=== PATIENT | female | born 1940 | race Caucasian/White ===

== ENCOUNTER 2019-06-14 07:59 | Day surgery (SDC) | payer OTHER, MEDICARE ==
[2019-06-12 13:09] VITALS: BMI 21.4
[2019-06-14] MEDS ORDERED: PROPOFOL 20 ML ONE ×2 (08:07)
[2019-06-14] MEDS ORDERED: LIDOCAINE HCL/PF 2% SDV 5ML VIAL ONE (08:07)
[2019-06-14 10:25] VITALS: TEMP 97.8
[2019-06-14 10:26] VITALS: BP 150/78; PULSE 74
--- NOTE | 2019-06-15 16:04 | PATH ---
Surgical Pathology Report Patient Name: [facility]. Rec. #: [id number] /Age/Gender: 1940 (Age: 79) / F Account: [id number] Location: [facility] Taken: 06/14/2019 Received: 06/14/2019 Reported: 06/15/2019 Physicians: Bernardo Naranjo M.D. Specimen(s) Received A: SECOND PORTION DUODENUM B: ANTRUM C: POLYP ASCENDING DOLON D: POLYP HEPATIC FLEXURE Clinical History GERD, weight loss, screening Postoperative diagnosis: Small hiatal hernia, gastritis, diverticulosis, colon polyp Final Diagnosis A. DUODENUM, SECOND PORTION, BIOPSY: DUODENAL MUCOSA WITHOUT SIGNIFICANT PATHOLOGIC FINDINGS. B. GASTRIC ANTRUM, BIOPSY: GASTRIC ANTRAL MUCOSA WITH MILD CHRONIC GASTRITIS. IMMUNOHISTOCHEMICAL STAIN FOR H. PYLORI IS NEGATIVE. C. ASCENDING COLON, POLYP, BIOPSY: HYPERPLASTIC POLYP. D. COLON, HEPATIC FLEXURE, POLYP, BIOPSY: HYPERPLASTIC POLYP. Positive and negative controls (internal if applicable) show appropriate results. Electronically Signed Suzette Caledron M.D. Gross Description A. Received in formalin, labeled "biopsy second portion duodenum" are 2 daley, irregular portions of soft tissue measuring 0.4 and 0.5 cm. in greatest dimension. The specimens are submitted in toto in one cassette. B. Received in formalin, labeled "biopsy gastric antrum" are 2 daley, irregular portions of soft tissue measuring 0.3 and 0.7 cm. in greatest dimension. The specimens are submitted in toto in one cassette. C. Received in formalin, labeled "biopsy polyp ascending colon" are 2 daley, irregular portions of soft tissue measuring 0.4 and 0.5 cm. in greatest dimension. The specimens are submitted in toto in one cassette. D. Received in formalin, labeled "biopsy polyp hepatic flexure" are 3 daley, irregular portions of soft tissue ranging from 0.2-0.4 cm. in greatest dimension. The specimens are submitted in toto in one cassette. 06/14/201906/14/2019
== END 2019-06-14 10:45 | disposition home or self-care (01) ==
LOC: FASU-ENDO 07:59
PROVIDERS: ATTEND Internal Medicine Gastroenterology
PROC: 0DBL8ZX Excision of Transverse Colon, Via Natural or Artificial Opening Endoscopic, Diagnostic (ICD-10-PCS; 2019-06-14)
PROC: 0DB98ZX Excision of Duodenum, Via Natural or Artificial Opening Endoscopic, Diagnostic (ICD-10-PCS; 2019-06-14)
PROC: 0DB68ZX Excision of Stomach, Via Natural or Artificial Opening Endoscopic, Diagnostic (ICD-10-PCS; 2019-06-14)
PROC: 0DBK8ZX Excision of Ascending Colon, Via Natural or Artificial Opening Endoscopic, Diagnostic (ICD-10-PCS; principal; 2019-06-14 09:03)
DX: R63.4 Abnormal weight loss (principal); D12.2 Benign neoplasm of ascending colon; D12.3 Benign neoplasm of transverse colon; K57.30 Diverticulosis of large intestine without perforation or abscess without bleeding; K58.9 Irritable bowel syndrome, unspecified; K63.89 Other specified diseases of intestine; K29.50 Unspecified chronic gastritis without bleeding; K25.9 Gastric ulcer, unspecified as acute or chronic, without hemorrhage or perforation; K44.9 Diaphragmatic hernia without obstruction or gangrene

== ENCOUNTER 2020-07-29 08:27 | Inpatient (IN) | payer OTHER, MEDICARE ==
[2020-07-29] MEDS ORDERED: morphine CARPU-JECT 2 MG/1 ML DISP.SYRIN IVPUSH ONE (08:37)
[2020-07-29] MEDS ORDERED: morphine SULFATE 4 MG/ML VIAL ONE ×2 (08:54→10:41)
[2020-07-29 09:15] LABS: BASO % 1.2 % (0-2.0); EOS % 5.5 % (0-4.5); HEMOGLOBIN 14.3 GM/dl (10.7-15.3); LYMPH % 13.4 % (8-40); MCH 28.9 pg (25.7-33.7); MCHC 32.6 g/dl (32.0-36.0); MEAN CELL VOLUME 88.5 fl (80-96); MEAN PLT VOLUME 8.3 fl (7.5-11.1); MONO % 6.3 % (3.8-10.2); NEUT % 73.6 % (42.8-82.8); PLATELET COUNT 280 K/MM3 (134-434); RBC 4.97 M/mm3 (3.60-5.2); RDW 13.3 % (11.6-15.6); WHITE BLOOD COUNT 7.7 K/mm3 (4.0-10.8)
[2020-07-29 09:29] LABS: ALBUMIN 3.8 g/dl (3.4-5.0); BILIRUBIN,TOTAL 1.3 mg/dl (0.2-1); CALCIUM 8.9 mg/dl (8.5-10); CREATININE 1.1 mg/dl (0.55-1.3); TOT PROT 6.2 g/dl (6.4-8.2)
[2020-07-29] MEDS ORDERED: morphine CARPU-JECT 4 MG/1 ML DISP.SYRIN IVPUSH ONE (10:22)
[2020-07-29 11:26] LABS: LIPASE 823 U/L (73-393)
[2020-07-29] MEDS ORDERED: SODIUM CHLORIDE 500 ML IV STA (13:56)
[2020-07-29] MEDS ORDERED: LACTATED RINGERS SOLUTION 1,000 ML IV SCH ×2 (14:00→17:25)
[2020-07-29] MEDS ORDERED: HYDROmorphone HCL CARPU-JECT 2 MG/1 ML DISP.SYRIN IVPUSH ONE (16:13)
[2020-07-29] MEDS ORDERED: HYDROmorphone HCL/PF 1 MG/ML VIAL ONE (16:17)
[2020-07-29 17:04] LABS: BASO % 0.2 % (0-2.0); EOS % 0.4 % (0-4.5); HEMATOCRIT 44.9 % (32.4-45.2); HEMOGLOBIN 14.9 GM/dl (10.7-15.3); LYMPH % 4.1 % (8-40); MCH 29.5 pg (25.7-33.7); MCHC 33.2 g/dl (32.0-36.0); MEAN CELL VOLUME 88.8 fl (80-96); MEAN PLT VOLUME 8.1 fl (7.5-11.1); MONO % 2.7 % (3.8-10.2); NEUT % 92.6 % (42.8-82.8); PLATELET COUNT 319 K/MM3 (134-434); RBC 5.06 M/mm3 (3.60-5.2); RDW 13.3 % (11.6-15.6); WHITE BLOOD COUNT 14.7 K/mm3 (4.0-10.8)
[2020-07-29 17:15] LABS: ALBUMIN 3.6 g/dl (3.4-5.0); BILIRUBIN,DIRECT 0.3 mg/dL (0.0-0.2); BILIRUBIN,TOTAL 1.7 mg/dl (0.2-1); CALCIUM 8.4 mg/dl (8.5-10); POTASSIUM 4.7 mmol/L (3.5-5.1)
[2020-07-29] MEDS ORDERED: MEROPENEM 500 MG in DEXTROSE 5%-WATER 100 ML IVPB SCH (18:15)
[2020-07-29 18:21] VITALS: BMI 23.1
[2020-07-30 07:51] LABS: BASO % 0.4 % (0-2.0); EOS % 0.4 % (0-4.5); HEMATOCRIT 43.8 % (32.4-45.2); HEMOGLOBIN 14.4 GM/dl (10.7-15.3); LYMPH % 5.9 % (8-40); MCH 29.2 pg (25.7-33.7); MCHC 32.8 g/dl (32.0-36.0); MEAN CELL VOLUME 88.9 fl (80-96); MEAN PLT VOLUME 8.5 fl (7.5-11.1); NEUT % 89.3 % (42.8-82.8); PLATELET COUNT 313 K/MM3 (134-434); RBC 4.93 M/mm3 (3.60-5.2); RDW 13.4 % (11.6-15.6); WHITE BLOOD COUNT 13.6 K/mm3 (4.0-10.8)
[2020-07-30 08:15] LABS: BILIRUBIN,DIRECT 0.2 mg/dL (0.0-0.2); BILIRUBIN,TOTAL 1.7 mg/dl (0.2-1); CALCIUM 8.4 mg/dl (8.5-10); CREATININE 1.1 mg/dl (0.55-1.3); MAGNESIUM 1.8 mg/dL (1.8-2.4); POTASSIUM 4.4 mmol/L (3.5-5.1); TOT PROT 5.1 g/dl (6.4-8.2)
[2020-07-30 08:24] LABS: INR 1.04 (0.82-1.09); PROTHROMBIN TIME (PATIENT) 11.6 SEC (10.2-13.0)
[2020-07-30] MEDS ORDERED: PANTOPRAZOLE SODIUM 40 MG VIAL IVPUSH SCH (10:00)
[2020-07-30] MEDS ORDERED: ONDANSETRON 4 MG/2 ML VIAL IVPUSH PRN ×2 (12:47→21:25)
[2020-07-30] MEDS ORDERED: MEROPENEM 500 MG VIAL (RESTRICTED TO ID) IVPB ONE (16:55)
[2020-07-30] MEDS ORDERED: DEXTROSE 5%-WATER 100 ML IVPB ONE (16:56)
[2020-07-30] MEDS ORDERED: LACTATED RINGERS SOLUTION 1,000 ML IV SCH ×2 (17:22→21:15)
[2020-07-30] MEDS ORDERED: MEROPENEM 1 GM in DEXTROSE 5%-WATER 100 ML IVPB SCH (18:00)
[2020-07-30] MEDS ORDERED: MEROPENEM 500 MG in DEXTROSE 5%-WATER 100 ML IVPB SCH (18:15)
[2020-07-30] MEDS ORDERED: morphine SULFATE 4 MG/ML VIAL IVPB PRN (19:41)
[2020-07-30] MEDS ORDERED: ACETAMINOPHEN 325 MG TABLET (FP) PO PRN (19:41)
[2020-07-30] MEDS ORDERED: BUPIVACAINE HCL/PF 0.5% (5 MG/ML) 30 ML VIAL IJ ONE (20:38)
[2020-07-30] MEDS ORDERED: NEOSTIGMINE METHYLSULFATE 0.5 MG/ML - 10 ML MDV ONE ×2 (20:41→20:52)
[2020-07-30] MEDS ORDERED: GLYCOPYRROLATE 0.2 MG/1 ML VIAL ONE (20:41)
[2020-07-30] MEDS ORDERED: ACETAMINOPHEN 1000 MG/100 ML VIAL (NON FORMULARY) IVPB ONE (21:19)
[2020-07-30] MEDS: D5-1/2NS+20 MEQ KCL - 20 MEQ/1,000 ML INFUS.BAG IV SCH (22:30)
[2020-07-31] MEDS ORDERED: MEROPENEM 1 GM in DEXTROSE 5%-WATER 100 ML IVPB SCH (06:00)
[2020-07-31] MEDS ORDERED: DEXTROSE 5%-WATER 100 ML IVPB ONE ×2 (06:29→18:16)
[2020-07-31] MEDS ORDERED: MEROPENEM 1 GM VIAL (RESTRICTED TO ID) IVPB ONE ×2 (06:29→18:16)
[2020-07-31] MEDS: MEROPENEM 1 GM in DEXTROSE 5%-WATER 100 ML IVPB SCH ×2 (06:41→18:18)
[2020-07-31 08:37] LABS: HEMATOCRIT 38.2 % (32.4-45.2); HEMOGLOBIN 12.7 GM/dL (10.7-15.3); MCH 29.5 pg (25.7-33.7); MCHC 33.3 g/dl (32.0-36.0); MEAN CELL VOLUME 88.4 fl (80-96); MEAN PLT VOLUME 8.5 fl (7.5-11.1); PLATELET COUNT 276 K/MM3 (134-434); RBC 4.33 M/mm3 (3.60-5.2); RDW 14.2 % (11.6-15.6); WHITE BLOOD COUNT 12.3 K/mm3 (4.0-10.0)
[2020-07-31] MEDS: D5-1/2NS+20 MEQ KCL - 20 MEQ/1,000 ML INFUS.BAG IV SCH (09:03)
[2020-07-31] MEDS: PANTOPRAZOLE SODIUM 40 MG VIAL IVPUSH SCH (09:04)
[2020-07-31 09:24] LABS: BLOOD UREA NITROGEN 34.2 mg/dL (7-18)
[2020-07-31 09:27] LABS: CREATININE 1.3 mg/dL (0.55-1.3); PHOSPHOROUS 4.4 mg/dL (2.5-4.9)
[2020-07-31] MEDS ORDERED: ENOXAPARIN NA (PORCINE) 40 MG/0.4 ML DISP.SYRIN SQ SCH (10:00)
[2020-07-31] MEDS: DEXTROSE 5%-LACTATED RINGERS 1,000 ML IV SCH (11:44)
[2020-07-31] MEDS: HEPARIN NA (PORCINE) 5,000 UNITS/ML 1ML VIAL SQ SCH ×2 (15:26→21:32)
[2020-08-01] MEDS: DEXTROSE 5%-LACTATED RINGERS 1,000 ML IV SCH (01:12)
[2020-08-01] MEDS ORDERED: MEROPENEM 1 GM VIAL (RESTRICTED TO ID) IVPB ONE ×2 (05:47→17:15)
[2020-08-01] MEDS ORDERED: DEXTROSE 5%-WATER 100 ML IVPB ONE ×2 (05:47→17:15)
[2020-08-01] MEDS: MEROPENEM 1 GM in DEXTROSE 5%-WATER 100 ML IVPB SCH ×2 (06:12→17:27)
[2020-08-01] MEDS: HEPARIN NA (PORCINE) 5,000 UNITS/ML 1ML VIAL SQ SCH (06:12)
[2020-08-01 09:24] LABS: BASO % 0.3 % (0-2.0); EOS % 4.2 % (0-4.5); HEMATOCRIT 29.2 % (32.4-45.2); HEMOGLOBIN 9.7 GM/dL (10.7-15.3); LYMPH % 9.1 % (8-40); MCH 30.2 pg (25.7-33.7); MCHC 33.2 g/dl (32.0-36.0); MEAN PLT VOLUME 8.6 fl (7.5-11.1); MONO % 6.7 % (3.8-10.2); NEUT % 79.7 % (42.8-82.8); PLATELET COUNT 182 K/MM3 (134-434); RBC 3.21 M/mm3 (3.60-5.2); RDW 13.9 % (11.6-15.6); WHITE BLOOD COUNT 6.3 K/mm3 (4.0-10.0)
[2020-08-01 09:30] LABS: CHLORIDE 107 mmol/L (98-107); POTASSIUM 4.1 mmol/L (3.5-5.1); SODIUM 142 mmol/L (136-145)
[2020-08-01 09:36] LABS: ANION GAP 5 MMOL/L (8-16); BLOOD UREA NITROGEN 21.7 mg/dL (7-18); CALCIUM 7.8 mg/dL (8.5-10.1); CO2 30 mmol/L (21-32); MAGNESIUM 1.9 mg/dL (1.8-2.4)
[2020-08-01 09:38] LABS: SGOT/AST 13 U/L (15-37); SGPT/ALT 14 U/L (13-61)
[2020-08-01 09:39] LABS: BILIRUBIN,TOTAL 1.1 mg/dL (0.2-1); CREATININE 0.9 mg/dL (0.55-1.3); PHOSPHOROUS 1.7 mg/dL (2.5-4.9)
[2020-08-01 09:40] LABS: TOT PROT 3.9 g/dl (6.4-8.2)
[2020-08-01 10:05] LABS: ALK PHOS 47 U/L (45-117); GLUCOSE,RANDOM 502 mg/dL (74-106)
[2020-08-01] MEDS: PANTOPRAZOLE SODIUM 40 MG VIAL IVPUSH SCH (10:12)
[2020-08-01] MEDS ORDERED: SODIUM PHOSPHATE - 30 MM in SODIUM CHLORIDE 500 ML IVPB ONE (10:30)
[2020-08-01] MEDS ORDERED: LACTATED RINGERS SOLUTION 1,000 ML/1,000 ML INFUS.BAG IV SCH (10:45)
[2020-08-02] MEDS ORDERED: MEROPENEM 1 GM VIAL (RESTRICTED TO ID) IVPB ONE ×2 (05:12→17:45)
[2020-08-02] MEDS ORDERED: DEXTROSE 5%-WATER 100 ML IVPB ONE ×2 (05:13→17:45)
[2020-08-02] MEDS: MEROPENEM 1 GM in DEXTROSE 5%-WATER 100 ML IVPB SCH ×2 (05:14→17:51)
[2020-08-02 09:20] LABS: POTASSIUM 3.8 mmol/L (3.5-5.1)
[2020-08-02 09:21] LABS: BASO % 0.4 % (0-2.0); EOS % 9.1 % (0-4.5); HEMATOCRIT 30.4 % (32.4-45.2); LYMPH % 11.9 % (8-40); MCH 29.4 pg (25.7-33.7); MCHC 32.8 g/dl (32.0-36.0); MEAN CELL VOLUME 89.5 fl (80-96); MEAN PLT VOLUME 8.8 fl (7.5-11.1); MONO % 5.8 % (3.8-10.2); NEUT % 72.8 % (42.8-82.8); PLATELET COUNT 181 K/MM3 (134-434); RDW 13.6 % (11.6-15.6); WHITE BLOOD COUNT 5.6 K/mm3 (4.0-10.0)
[2020-08-02 09:23] LABS: CALCIUM 7.8 mg/dL (8.5-10.1)
[2020-08-02 09:24] LABS: BLOOD UREA NITROGEN 16.6 mg/dL (7-18)
[2020-08-02 09:25] LABS: CREATININE 0.6 mg/dL (0.55-1.3)
[2020-08-02 09:27] LABS: PHOSPHOROUS 2.5 mg/dL (2.5-4.9)
[2020-08-02] MEDS: PANTOPRAZOLE SODIUM 40 MG VIAL IVPUSH SCH (09:46)
[2020-08-02] MEDS ORDERED: TELMISARTAN HCTZ PO SCH (12:30)
[2020-08-02] MEDS: LOSARTAN POTASSIUM 50 MG TABLET PO SCH (13:38)
[2020-08-02] MEDS: HYDROCHLOROTHIAZIDE 25 MG TABLET (FP) PO SCH (13:39)
[2020-08-02] MEDS: ATORVASTATIN CA 20 MG TABLET (FP) PO SCH (22:47)
[2020-08-03] MEDS ORDERED: MEROPENEM 1 GM VIAL (RESTRICTED TO ID) IVPB ONE ×2 (05:48→18:08)
[2020-08-03] MEDS ORDERED: DEXTROSE 5%-WATER 100 ML IVPB ONE ×2 (05:48→18:08)
[2020-08-03] MEDS: MEROPENEM 1 GM in DEXTROSE 5%-WATER 100 ML IVPB SCH ×2 (05:50→18:16)
[2020-08-03 10:42] LABS: BASO % 0.4 % (0-2.0); EOS % 9.9 % (0-4.5); HEMATOCRIT 32.5 % (32.4-45.2); HEMOGLOBIN 10.9 GM/dL (10.7-15.3); LYMPH % 11.1 % (8-40); MCH 29.6 pg (25.7-33.7); MCHC 33.6 g/dl (32.0-36.0); MEAN PLT VOLUME 8.1 fl (7.5-11.1); MONO % 6.6 % (3.8-10.2); PLATELET COUNT 198 K/MM3 (134-434); RBC 3.69 M/mm3 (3.60-5.2); RDW 13.5 % (11.6-15.6); WHITE BLOOD COUNT 5.4 K/mm3 (4.0-10.0)
[2020-08-03] MEDS: DONEPEZIL HCL 10 MG TABLET (FP) PO SCH (11:02)
[2020-08-03] MEDS: PANTOPRAZOLE SODIUM 40 MG VIAL IVPUSH SCH (11:03)
[2020-08-03] MEDS: LOSARTAN POTASSIUM 50 MG TABLET PO SCH (11:03)
[2020-08-03] MEDS: HYDROCHLOROTHIAZIDE 25 MG TABLET (FP) PO SCH (11:03)
[2020-08-03 11:53] LABS: POTASSIUM 3.5 mmol/L (3.5-5.1)
[2020-08-03 12:10] LABS: CALCIUM 7.9 mg/dL (8.5-10.1)
[2020-08-03 12:11] LABS: BLOOD UREA NITROGEN 14.7 mg/dL (7-18); MAGNESIUM 1.9 mg/dL (1.8-2.4)
[2020-08-03 12:14] LABS: CREATININE 0.8 mg/dL (0.55-1.3); PHOSPHOROUS 1.9 mg/dL (2.5-4.9)
[2020-08-03] MEDS: HEPARIN NA (PORCINE) 5,000 UNITS/ML 1ML VIAL SQ SCH ×2 (13:59→21:28)
[2020-08-03] MEDS ORDERED: NAPH,MB-DB/K PH,MBDB POWDER PACKET PO ONE (14:33)
[2020-08-03] MEDS ORDERED: PT OWN MED DRAWER 7, Y5N ONE (17:56)
[2020-08-03] MEDS: HYDROCORTISONE 1% TOPICAL LOTION 118 ML BOTTLE TP SCH (21:28)
[2020-08-03] MEDS: ATORVASTATIN CA 20 MG TABLET (FP) PO SCH (21:28)
[2020-08-04] MEDS ORDERED: MEROPENEM 1 GM VIAL (RESTRICTED TO ID) IVPB ONE ×2 (05:33→17:15)
[2020-08-04] MEDS ORDERED: DEXTROSE 5%-WATER 100 ML IVPB ONE ×2 (05:33→17:15)
[2020-08-04] MEDS: HEPARIN NA (PORCINE) 5,000 UNITS/ML 1ML VIAL SQ SCH ×3 (05:36→21:17)
[2020-08-04] MEDS: MEROPENEM 1 GM in DEXTROSE 5%-WATER 100 ML IVPB SCH ×2 (05:36→18:04)
[2020-08-04 09:47] LABS: BASO % 0.4 % (0-2.0); EOS % 12.3 % (0-4.5); HEMATOCRIT 33.2 % (32.4-45.2); HEMOGLOBIN 11.3 GM/dL (10.7-15.3); LYMPH % 14.6 % (8-40); MCH 29.8 pg (25.7-33.7); MCHC 34.1 g/dl (32.0-36.0); MEAN CELL VOLUME 87.4 fl (80-96); MEAN PLT VOLUME 8.1 fl (7.5-11.1); MONO % 6.7 % (3.8-10.2); PLATELET COUNT 198 K/MM3 (134-434); RDW 13.5 % (11.6-15.6); WHITE BLOOD COUNT 5.3 K/mm3 (4.0-10.0)
[2020-08-04 10:06] LABS: POTASSIUM 3.3 mmol/L (3.5-5.1)
[2020-08-04] MEDS: PANTOPRAZOLE SODIUM 40 MG VIAL IVPUSH SCH (10:31)
[2020-08-04] MEDS: LOSARTAN POTASSIUM 50 MG TABLET PO SCH (10:32)
[2020-08-04] MEDS: DONEPEZIL HCL 10 MG TABLET (FP) PO SCH (10:32)
[2020-08-04] MEDS: HYDROCHLOROTHIAZIDE 25 MG TABLET (FP) PO SCH (10:32)
[2020-08-04] MEDS: HYDROCORTISONE 1% TOPICAL LOTION 118 ML BOTTLE TP SCH ×2 (10:33→21:18)
[2020-08-04 10:38] LABS: ALBUMIN 2.3 g/dl (3.4-5.0); CALCIUM 8.2 mg/dL (8.5-10.1)
[2020-08-04 10:41] LABS: CREATININE 0.8 mg/dL (0.55-1.3)
[2020-08-04 10:42] LABS: PHOSPHOROUS 2.5 mg/dL (2.5-4.9)
[2020-08-04 10:43] LABS: BILIRUBIN,TOTAL 1.4 mg/dL (0.2-1); TOT PROT 4.6 g/dl (6.4-8.2)
[2020-08-04] MEDS ORDERED: POTASSIUM CHLORIDE TABS 20 MEQ TABLET.ER (FP) PO ONE (16:15)
[2020-08-04] MEDS: ATORVASTATIN CA 20 MG TABLET (FP) PO SCH (21:17)
[2020-08-05] MEDS ORDERED: MEROPENEM 1 GM VIAL (RESTRICTED TO ID) IVPB ONE (05:11)
[2020-08-05] MEDS ORDERED: DEXTROSE 5%-WATER 100 ML IVPB ONE (05:12)
[2020-08-05] MEDS: MEROPENEM 1 GM in DEXTROSE 5%-WATER 100 ML IVPB SCH (05:16)
[2020-08-05] MEDS: HEPARIN NA (PORCINE) 5,000 UNITS/ML 1ML VIAL SQ SCH ×2 (05:23→14:00)
[2020-08-05 10:08] LABS: BASO % 0.7 % (0-2.0); EOS % 11.5 % (0-4.5); HEMOGLOBIN 11.2 GM/dL (10.7-15.3); LYMPH % 14.6 % (8-40); MCH 29.8 pg (25.7-33.7); MCHC 33.9 g/dl (32.0-36.0); MEAN CELL VOLUME 87.8 fl (80-96); MEAN PLT VOLUME 8.4 fl (7.5-11.1); MONO % 6.7 % (3.8-10.2); NEUT % 66.5 % (42.8-82.8); PLATELET COUNT 203 K/MM3 (134-434); RBC 3.76 M/mm3 (3.60-5.2); RDW 13.5 % (11.6-15.6); WHITE BLOOD COUNT 5.3 K/mm3 (4.0-10.0)
[2020-08-05 10:25] LABS: BLOOD UREA NITROGEN 10.3 mg/dL (7-18); CALCIUM 8.3 mg/dL (8.5-10.1)
[2020-08-05 10:29] LABS: CREATININE 0.9 mg/dL (0.55-1.3); PHOSPHOROUS 1.9 mg/dL (2.5-4.9)
[2020-08-05 10:31] LABS: POTASSIUM 4.3 mmol/L (3.5-5.1)
[2020-08-05] MEDS: PANTOPRAZOLE SODIUM 40 MG VIAL IVPUSH SCH (10:33)
[2020-08-05] MEDS: HYDROCORTISONE 1% TOPICAL LOTION 118 ML BOTTLE TP SCH (10:33)
[2020-08-05] MEDS: DONEPEZIL HCL 10 MG TABLET (FP) PO SCH (10:33)
[2020-08-05] MEDS: HYDROCHLOROTHIAZIDE 25 MG TABLET (FP) PO SCH (10:33)
[2020-08-05] MEDS: LOSARTAN POTASSIUM 50 MG TABLET PO SCH (10:38)
[2020-08-05] MEDS ORDERED: POTASSIUM PHOSPHATE 30 MM in SODIUM CHLORIDE 500 ML IVPB ONE (13:00)
[2020-08-05] MEDS ORDERED: NAPH,MB-DB/K PH,MBDB POWDER PACKET PO ONE (13:30)
[2020-08-05 15:13] VITALS: BP 132/58; PULSE 69; TEMP 98.3
== END 2020-08-05 15:19 | disposition home or self-care (01) | DRG 357 ==
LOC: FER 08:27 → FM/S 13:47 → J6S 07-30 18:28
PROVIDERS: ADMIT Internal Medicine; ATTEND Internal Medicine
PROC: 0DQV0ZZ Repair Mesentery, Open Approach (ICD-10-PCS; 2020-07-30)
PROC: 3E1M38Z Irrigation of Peritoneal Cavity using Irrigating Substance, Percutaneous Approach (ICD-10-PCS; 2020-07-30)
PROC: 0D9670Z Drainage of Stomach with Drainage Device, Via Natural or Artificial Opening (ICD-10-PCS; 2020-07-30)
PROC: 0W9G0ZZ Drainage of Peritoneal Cavity, Open Approach (ICD-10-PCS; principal; 2020-07-30 19:30)
DX: K56.51 Intestinal adhesions [bands], with partial obstruction (principal); R18.8 Other ascites; S36.892A Contusion of other intra-abdominal organs, initial encounter; I10 Essential (primary) hypertension; K46.9 Unspecified abdominal hernia without obstruction or gangrene; E78.5 Hyperlipidemia, unspecified; R21 Rash and other nonspecific skin eruption; F03.90 Unspecified dementia, unspecified severity, without behavioral disturbance, psychotic disturbance, mood disturbance, and anxiety; E87.6 Hypokalemia; D72.829 Elevated white blood cell count, unspecified; Z85.3 Personal history of malignant neoplasm of breast; Z85.43 Personal history of malignant neoplasm of ovary; Z87.11 Personal history of peptic ulcer disease; X58.XXXA Exposure to other specified factors, initial encounter; Y93.9 Activity, unspecified; Y92.9 Unspecified place or not applicable
CPT/HCPCS: 36415; 74176-TC; 74177-TC; 76705-TC; 80048; 80053; 80076; 81003; 82550; 82962; 83605; 83690; 83735; 84100; 84484; 85025; 85027; 85610; 85651; 85730; 86140; 86850; 86900; 86901; 87040; 87086; 93005; 94760; 97116-GP; 97162-GP; 99285-25; C9803; J1644; Q9967; U0003